=== PATIENT | female | born 1950 | race Caucasian/White ===

== ENCOUNTER 2017-01-01 21:48 | Inpatient (IN) | payer MEDICARE, OTHER ==
[~2017-01-01] VITALS: Ht 170.2 cm; Wt 92.5 kg
--- NOTE | ~2017-01-01 | HP ---
ADMIT: 01/01/2017 RM/LOC: 302 [facility] MR#: [id number] [address] [address] ERIC ZHU [address] [place] [address] History and Physical SEX: F AGE: 66 : 1950 DATE OF SERVICE: 01/01/2017 CHIEF COMPLAINT: Upper GI bleed with melenic stools and hypotension. HISTORY OF PRESENT ILLNESS: This is a 66-year-old, female patient, who just discharged from [facility] today to skilled care here. She was actually in the hospital here at [place] for a couple of weeks with recurrent upper GI bleeds. Dr. Talbert had scoped her above twice and then I scoped her stomach and duodenum once, and Dr. Alexis scoped it the 4th time. Despite that, she received I think 23 or 24 units of packed cells while she was here. She has a known duodenal ulcer. She had at least 1 positive nuclear medicine tagged red blood cell scan, which prompted that fourth EGD. She ultimately was transferred to [place] for Gastroenterology consult. She was feeling fine till this afternoon. She had an abrupt onset of melenic stools at the group home unit, became hypotensive, tachycardic, complaining of a little bit of abdominal discomfort and so she was obviously transferred here for evaluation. PAST MEDICAL HISTORY: She has chronic renal insufficiency, actually renal failure at this point now and is on dialysis. She has this anemia. She has history of hyperkalemia at times, history of lupus, hypertension, and COPD. MEDICATIONS: Well outlined on the chart. SOCIAL HISTORY: She was just discharged to the group home unit today. FAMILY HISTORY: Noncontributory. REVIEW OF SYSTEMS: Ten-point review of systems. Her current issues are her hypotension and shortness of breath. Minimal abdominal discomfort and then the melenic stools that she is having. PHYSICAL EXAMINATION: GENERAL: She is quite pale. She is lying in Trendelenburg in the bed. She is alert. She is oriented. She is able to answer questions. LUNGS: Diminished bilaterally. ADMIT: 01/01/2017 RM/LOC: 302 [facility] MR#: [id number] [address] [address] ERIC ZHU [address] [place] [address] History and Physical SEX: F AGE: 66 : 1950 HEART: Tachy. ABDOMEN: Obese. It is soft. Minimally uncomfortable. EXTREMITIES: Warm and pink with some edema. ASSESSMENT: 1. Melena. 2. Anemia. PLAN: I have recommended proceeding with EGD tonight as well as central venous line. I have gone through risks and benefits of both these procedures with the patient and her daughter. They understand all this and agreed to proceed. Magdy Rivera MD/ jorge a JOB #: [id number] CC: Magdy Rivera, Attending Physician Leona Singletno, Family Physician
--- NOTE | ~2017-01-01 | ECH ---
Transthoracic Echocardiography Report (TTE) Demographics Patient Name ERIC ZHU Date of Study 01/05/2017 Patient Number [id number] Visit Number [id number] Date of 1950 Room Number 302 Accession Number [id number] Gender Female Age 66 year(s) Referring King Aidan Lewis MD Tray Delivery Aide Christy Lopez [facility] Physician Physician Interpreting Masoud CRUZ Wood Room Hand Physician David Supervising Ordering Physician King Aidan Lewis MD, MD/MLP Nurse Stress Pin Ball Machine Mechanic Conclusions Contractility Score Summary Normal Left Ventricular contractility was noted. Summary Limited exam for ejection fraction. Technically difficult exam to perform due to patient in supine position. Images obtained are fair. The estimated left ventricular ejection fraction is 55%. Mild left ventricular hypertrophy. The left atrium is severely dilated by LA volume index measurement. The right atrium is mildly dilated. Recommendation The patient will be given the results of this study by the physician who ordered the exam. Procedure Type of Study TTE procedure:Echo Limited SF. Procedure Date Date: 01/05/2017 Start: 05:07 PM Technical Quality: Fair due to patient immobility. Indications:Atrial fibrillation. Appropriate Use Criteria: 9 Height: 67 inches Weight: 233.01 pounds BSA: 2.16 m Rhythm: Atrial fibrillation HR: 100 bpm BP: 83/46 mmHg M-Mode/2D Measurements LV Diastolic Dimension: 4.8 cm LV Systolic Dimension: 3.38 cm LV Septum Diastolic: 1 cm LV PW Diastolic: 1.05 cm AO Root Dimension: 2.49 cm LA Dimension: 4.43 cm LA volume: 122.92 ml LA volume index: 57 ml/m Doppler Measurements Estimated RAP:10 mmHg RA Area: 19.74 cm Findings Left Ventricle The left ventricle is normal in size . Mild left ventricular hypertrophy. Right Ventricle Right ventricle not well seen. Left Atrium The left atrium is severely dilated by LA volume index measurement. Right Atrium The right atrium is mildly dilated. Pericardial Effusion No evidence of pericardial effusion. Miscellaneous Visualized portions of the aortic root and ascending aorta appear normal in size. Pleural Effusion No evidence of pleural effusion. Contractility Score LV regional wall motion:(0-Non visualized 1-Normal 2-Hypokinesis 3-Akinesis 4-Dyskinesis 5-Aneurysm) Signature
[~2017-01-01 21:48] MED LIST: ACCUNEB DP0.63 MG/3 IH; ADVAIR DIS1 PUFF/DO1 IH; ADVAIR DIS1 PUFF/DO2 IH; ASA CHILDREN'S81 MG PO; ASPIRIN EC81 MG PO; ATROVENT SOLN.2.5 ML IH; B COMPLETE1 EACH PO; BUMETANIDE2 MG PO; CALTRATE-600 D600 MG PO; CULTURELLE1 CAP PO; DELTASONE DPS10 MG PO; DELTASONE DPS20 MG PO; HYDROXYCHLOROQ200 MG PO; LEVAQUIN DPS250 MG PO; MUCINEX600 MG PO; NILSTAT SUSP DPS5 ML PO; NORCO 5-325 TA1 EACH PO; NORVASC5 MG PO; PLAQUENIL DPS200 MG PO; PROBIOTIC1 EAC1 PO; ROCALTROL DP0.25 MCG PO; ROCALTROL DPS0.5 MCG PO; TENORMIN-DPS25 MG PO; VITAMIN B-121000 MCG PO; VITAMIN D-32000 UNI1 PO
--- NOTE | 2017-01-03 06:25 | ER ---
ADMIT: 01/01/2017 RM/LOC: 302 [facility] MR#: [id number] [address] [address] ERIC ZHU [address] [place] [address] Emergency Room Report SEX: F AGE: 66 : 1950 DATE: 01/01/2017 CHIEF COMPLAINT: GI bleed. HISTORY OF PRESENT ILLNESS: The patient is a 66-year-old female, who comes from [facility] care, who has a history of GI bleed. Apparently just prior to arrival, she has had 4 large melanotic maroon stools while at [facility]. The patient states that she has some diffuse abdominal pain with this. She otherwise denies any chest pain, shortness of breath, nausea, or vomiting. She does have a history of GI bleed in the past and has been scoped before and has received numerous packed red blood cells for acute blood loss in the past, associated with her GI bleeds. PAST MEDICAL HISTORY: Chronic kidney disease; lupus; COPD; end-stage renal disease, on dialysis; depression; previous GI bleed. MEDICATIONS: See nurse's note. SURGICAL HISTORY: She has had previous EGDs and colonoscopies in the past, tonsillectomy, and tubal ligation. ALLERGIES: SEE NURSE'S NOTE. SOCIAL HISTORY: History of smoking but quit many years ago. Denies drug or alcohol use. PHYSICAL EXAMINATION: VITAL SIGNS: Initial blood pressure was 106/67, heart rate of 77, respirations 20, temp 98.6, sats 100% on 2 L, which normally wears. GENERAL: The patient is alert, oriented, is pale. HEENT: Head is atraumatic. Airway is patent. LUNGS: Clear to auscultation. HEART: Borderline tachycardic. ABDOMEN: Obese and soft. There is some diffuse tenderness. SKIN: Warm and dry but she does have some pallor. EMERGENCY DEPARTMENT COURSE: The patient arrived. We went ahead and started our sepsis protocol. Type and screened the patient and tried to get IV lines. We had difficulty obtaining good IV access and I contacted Dr. Rivera, who is ADMIT: 01/01/2017 RM/LOC: 302 [facility] MR#: [id number] [address] [address] ERIC ZHU [address] [place] [address] Emergency Room Report SEX: F AGE: 66 : 1950 on for General Surgery this evening. They actually came in and saw the patient and plan at this time is to have the patient go to the OR to get a scope to see if we can find the source of bleeding and possible placement of a central line at that time. The patient is admitted to Dr. Rivera's service to go to the OR directly from the ER. DIAGNOSES: 1. Gastrointestinal bleed. 2. Acute blood loss anemia. 3. Melena. DISPOSITION: The patient is admitted in critical condition. Gino Etienne MD/ jorge a JOB #: [id number] CC: Magdy Rivera MD, Attending Physician Leona Singleton MD, Family Physician
--- NOTE | 2017-01-04 08:33 | CO ---
ADMIT: 01/01/2017 RM/LOC: 302 [facility] MR#: [id number] [address] [address] ERIC ZHU [address] [place] [address] Consultation SEX: F AGE: 66 : 1950 DATE OF CONSULTATION: 01/02/2017 ATTENDING PHYSICIAN: Magdy Rivera CONSULTING PHYSICIAN: Staci Pena MD REASON FOR CONSULTATION: Chronic kidney disease on dialysis. HISTORY OF PRESENT ILLNESS: The patient is a 66-year-old female, who is well known to me. She has had a recent prolong hospitalization here with a gastrointestinal bleed. She had multiple endoscopic procedures and was eventually transferred to [place] for Gastroenterology consult. She did have an acute kidney injury on her underlying chronic kidney disease and eventually needed renal replacement therapy. She was being dialyzed down in [place]. Her last treatment was on Thursday. She was transferred here to assisted facility yesterday. Yesterday, she was noted to have 4 melanotic blood stools, and was hypotensive, and was transferred here to the ICU. She did end up having an upper GI endoscopy last night and there was no active bleeding that was noticed. She was extubated but had to be intubated postprocedure. At this time, she is on a ventilator. She is unable to give me a history, but she is awake, will have to answer some questions. She denies any pain. She is comfortable. She appears pale. REVIEW OF SYSTEMS: Limited by patient's condition and is unobtainable at this time. PAST MEDICAL HISTORY: 1. Hypertension. 2. Anemia and chronic kidney disease. 3. CKD stage 5 on dialysis. She had a diagnostic kidney biopsy previously which did not have very many glomeruli and showed idvvrpnu-no-oyijin interstitial fibrosis and tubular atrophy. 4. Renal osteodystrophy. 5. Tobacco use. 6. COPD. 7. Proteinuria. 8. Microscopic hematuria. 9. Vitamin D deficiency. MEDICATIONS: Reviewed and addressed in the chart. SOCIAL HISTORY: She used to live at home. She is currently at the assisted facility here. No ongoing tobacco, alcohol, or recreational drug use. FAMILY HISTORY: No family history of chronic kidney disease or renal replacement therapy. ALLERGIES: CELEBREX AND MONICA INHIBITORS. ADMIT: 01/01/2017 RM/LOC: 302 [facility] MR#: [id number] [address] [address] ERIC ZHU [address] [place] [address] Consultation SEX: F AGE: 66 : 1950 PHYSICAL EXAMINATION: VITAL SIGNS: Temperature 97.3 Fahrenheit, pulse 57, blood pressure 90/65, saturating 100% on 35% FiO2. GENERAL: She is intubated. She appears pale. HEENT: Head is nontraumatic and normocephalic. Extraocular movements are intact. Pale conjunctivae. CVS: Regular rhythm. S1 and S2. No murmurs, rubs, or gallops. ABDOMEN: Soft and nontender. CHEST: Decreased breath sounds bilaterally. SKIN: No rash or nodules. NEUROLOGIC: She is awake and responds to verbal stimulus. MUSCULOSKELETAL: Extremities within normal limits. SKIN: No rash or nodules. EXTREMITIES: She has 2+ lower extremity edema. LABORATORY DATA: Reviewed. BMP with sodium 142, potassium 3.2, creatinine is 3.3, CO2 is 25. Hemoglobin 6.6, white count is 8.5. Calcium is 6.5. ASSESSMENT AND PLAN: 1. Chronic kidney disease stage 5, on dialysis. 2. Gastrointestinal bleed, likely duodenal. 3. Hypertension. 4. Volume expansion/edema. 5. Hypokalemia. 6. Acute blood loss anemia. She is hypotensive but volume expansion is a concern at this time. I will stop her IV fluids for the time being since the blood pressures are better now. We can address her potassium as well as acute blood loss anemia on dialysis and transfuse her on dialysis. I will try to provide ultrafiltration as her blood pressure allows to address her volume expansion. Because of her volume expanded state, she may need frequent hemodialysis, I suppose two to three times a week schedule. Thank you for this consultation and allowing me the opportunity to participate in this patient's care. Please do not hesitate to contact me with any questions. Staci Pena MD/ jorge a JOB #: [id number] CC: Magdy Rivera, Attending Physician Leona Singleton, Family Physician
--- NOTE | 2017-01-05 10:07 | CO ---
ADMIT: 01/01/2017 RM/LOC: 302 [facility] MR#: [id number] [address] [address] ERIC ZHU [address] [place] [address] Consultation SEX: F AGE: 66 : 1950 DATE OF CONSULTATION: 01/02/2017 ATTENDING PHYSICIAN: Magdy Rivera CONSULTING PHYSICIAN: Ángel Kat MD HISTORY OF PRESENT ILLNESS: Dr. Rivera called me to see this patient in critical care, this night. I saw her initially at 1 a.m., and subsequently dictating the note. She is on vent on volume control mode. She is sedated with Versed. She has a right Hemo-Cath in the IGS system. She has a left central line for IVs. She had the 4th upper GI endoscopy and has had cauterization of the bleeding duodenal ulcer. She had numerous blood transfusions, I think 24 of them. She is in acute kidney injury. She is getting hemodialysis, had her last dialysis done yesterday, that is 01/01/2017. I got a chance to talk to the daughters, who were present and also nurse. PHYSICAL EXAMINATION: GENERAL: On My evaluation, she looks well nourished. She is sedated. Her blood pressure appears stable on no pressor support. VITAL SIGNS: Blood pressure was 127/69, heart rate was 69, and her saturation 98% on 80% oxygen. CHEST: Sounder clear. There were no heart murmur. GI: Bowel sound present. ABDOMEN: Somewhat protuberant. There was no edema. LABORATORY DATA: The chest x-ray, the recent one is pending. The old one from November showed right subclavian central line and probable right lower lobe atelectasis. Her blood gases on the vent setting; pH 7.53, pCO2 of 39, pO2 of 201.7, bicarb 21.2 on the date of 16. Sodium 140, potassium was 3.3, creatinine 3.2, BUN 39. Hemoglobin was 7.7, it was 6.8 earlier; white count 17.9, platelet 108. IMPRESSION: 1. Post-procedure ventilator status, acute persistent gastrointestinal bleeding, status post repeat endoscopies. 2. Wnobo-bg-qmkjnqw kidney disease, on hemodialysis. 3. Severe anemia secondary to gastrointestinal blood loss. ADMIT: 01/01/2017 RM/LOC: 302 [facility] MR#: [id number] [address] [address] ERIC ZHU [address] [place] [address] Consultation SEX: F AGE: 66 : 1950 RECOMMENDATIONS: I will get her started on a Precedex drip, Fentanyl drip for pain control and sedation. She is already on Protonix continuos infusion. Make vent changes to pressure control mode. Wean as possible in the morning. Labs and chest x-ray will be reviewed. I would like to thank Dr. Rivera for this referral. I think there may be some definitive surgical decision to be made to control the persistent GI bleeding. Ángel Kat MD/ jorge a JOB #: [id number] CC: Magdy Rivera, Attending Physician Leona Singleton, Family Physician MD Leona Kauffman MD
--- NOTE | 2017-01-12 15:29 | CO ---
ADMIT: 01/01/2017 RM/LOC: 302 [facility] MR#: [id number] [address] [address] MARLYS ZHU [address] [place] [address] Consultation SEX: F AGE: 66 : 1950 DATE OF CONSULTATION: 01/06/2017 ATTENDING PHYSICIAN: Magdy Rivera CONSULTING PHYSICIAN: Romi Crenshaw APRN TIME IN: 1040 hours. TIME OUT: 1115 hours. REASON FOR CONSULTATION: Supportive care consultation was requested by Dr. Singleton for discussion of goals for care. HISTORY OF PRESENT ILLNESS: Marlys is a delightful 66-year-old female with a history of recurrent upper GI bleeds over the course of the last month or so. She has had numerous EGD evaluations and extensive number of blood transfusions. She was hospitalized here in November of 2005 with upper GI bleeding and did undergo extensive evaluation, however, eventually transferred to [place] for GI consult. Apparently, she improved while there and [facility], however, shortly after arriving at [facility], she began having dark stools with decreasing blood pressure and elevated heart rate. She was admitted again for evaluation. She did go for EGD where they did not find any active bleeding, but did find an old blood. She did have cauterization of the ulcer bed noted on EGD. After procedure, she ended up needing to be intubated, however, she has now been extubated. She continues to be anemic. Last hemoglobin was 7.9. She is scheduled to receive blood today. Additionally, she is also on hemodialysis for chronic kidney disease. Overall, she is very debilitated. This morning, she did have a conversation with Dr. Singleton and directed that she wishes to be a do not resuscitate/do not intubate status and she wishes to no longer receive any further EGD evaluation. Due to her complexities, supportive care consultation was requested to discuss goals. In terms of advanced directives, the patient does not have a living will or any other advanced directives that she has completed. Her legal next of kin decision maker is her daughter, Kp Zhu whose phone #[phone]. Kp is not the patient's healthcare [id number], however, she is her eldest child. As mentioned, the patient is a do not resuscitate/do not intubate status. Symptomatically, the patient is very weak and debilitated. She does have intermittent anxiety, which is exacerbated by dialysis. She denies pain currently. PAST MEDICAL HISTORY: Chronic kidney disease, for which she is on dialysis, recurrent GI bleeding, anemia, hyperkalemia at times, history of lupus, hypertension, and COPD. ALLERGIES: THE PATIENT IS ALLERGIC TO MONICA INHIBITORS AND CELEBREX. ADMIT: 01/01/2017 RM/LOC: 302 [facility] MR#: [id number] [address] [place] [address] [place] [address] Consultation SEX: F AGE: 66 : 1950 CURRENT MEDICATIONS: Please see the patient's MAR for specific routes and dosages. Her current medications are as follows: 1. Cardizem. 2. Lopressor. 3. Protonix. 4. Ativan. 5. Fentanyl. 6. Mycostatin. 7. Cordarone. 8. Tylenol. 9. Dulera. 10.Precedex. 11.Nitrostat. SOCIAL HISTORY: The patient is not . She has adult children. She does not use alcohol, tobacco, or illicit drugs. FAMILY HISTORY: Reviewed per chart and noncontributory. FUNCTIONAL REVIEW: Prior to her hospital stay, she was living at skilled care. She was needing assistance with ADLs. Her palliative performance score prior to admission was around 50%. Currently, she is in bed. She is total care for the most part. Her intake is reduced. She is fatigued. Her current palliative performance scale is 30%. REVIEW OF SYSTEMS: A 10-point review of systems was completed and other than those pertinent positives and negatives mentioned the HPI, it is negative. PHYSICAL EXAMINATION: GENERAL: The patient is examined in the bed. She is in no acute distress. VITAL SIGNS: Temperature 97.8, pulse 85, respirations 18, blood pressure 112/75, oxygen 95% on 4 L per nasal cannula. HEENT: Head is normocephalic. Pupils are equal, round, and reactive with a diameter of 3 mm bilaterally. Oral mucosa pink and moist. Fair dentition. NECK: Supple. RESPIRATORY: Respirations are equal and nonlabored at rest. LUNGS: Diminished throughout. CARDIOVASCULAR: Irregularly irregular without murmurs, rubs, or gallops. 1+ generalized edema. GASTROINTESTINAL: Soft, nontender. She is obese. Bowel sounds are positive. GENITOURINARY: She has a Crook draining yellow urine. MUSCULOSKELETAL: Generalized weakness. INTEGUMENTARY: Skin turgor is fair. NEUROLOGIC: Alert and oriented x3. She will follow commands. PSYCHIATRIC: Calm during our discussion, but she will become intermittently anxious. No delirium noted. DIAGNOSTIC DATA: Sodium 138, potassium 4.1, BUN 18, and creatinine 2.2. ADMIT: 01/01/2017 RM/LOC: 302 [facility] MR#: [id number] [address] [place] [phone] MARLYS ZHU [address] [place] [address] Consultation SEX: F AGE: 66 : 1950 Total protein 4.9, albumin 2.8. WBC is 15.8, hemoglobin 6.5, hematocrit 22.3, and platelets are 108. IMPRESSION: 1. Debility. 2. Fatigue. 3. Malaise. 4. Moderate protein-calorie malnutrition. 5. Anxiety. 6. Gastrointestinal bleed. 7. Chronic kidney disease, stage 5 on hemodialysis. 8. Anemia. 9. Atrial fibrillation. 10.Palliative care. 11.The patient is a do not resuscitate/do not intubate. PLAN: 1. I was able to meet with the patient the bedside. She is alert and oriented, able to participate in medical decision making. I introduced myself and what my role is and she states to me that she is "done." I explored this further with her and she states that she does not want any more EGD evaluations, however, for the time being, she is okay with ongoing hemodialysis as well as blood transfusions and TPN. She does agree to ongoing discussions in the days ahead regarding this. When I have asked if she has talked her children about that, she states that she has talked with her daughter and also her daughter is sad that she is wanting to be less aggressive with her care that she is supportive in her mother's decision. The patient agrees to ongoing discussions in the days ahead pending her status. 2. In terms of code status, I did review this with the patient and she is very clear that she wishes to be a do not resuscitate/do not intubate status. This is reflected on the chart. 3. In terms of advanced directives, the patient's daughter is her next of kin medical decision maker. I did offer her assistance with completion of health care [id number] paperwork, however, the patient is fatigued at this point, and legally decision making would follow with her daughter wishes if she wants as her decision maker. Pending our discussions in the days ahead and outcomes of those, I may assist the patient with completing a POLST form as she does not have any advanced directives on file. 4. In terms of her anxiety, I do agree with the Ativan. However, the nurses ADMIT: 01/01/2017 RM/LOC: 302 [facility] MR#: [id number] [address] [place] [address] [place] [phone] MARLYS ZHU [address] [place] [address] Consultation SEX: F AGE: 66 : 1950 that are taking care of the patient does state that she gets a little agitated and confused with the Ativan. If she does not tolerate it, you could try Xanax 0.5 mg p.o. q.6 hours p.r.n. This may also help a little bit better with a panic type feelings that the nurse reports when the patient is getting dialysis. We will see how she does today. 5. We will continue to follow along in the care of this patient and assist with goals pending the patient's status. We would like to thank Dr. Singleton for the invitation to participate in this patient's care. Total consultation time was 35 minutes from 1045 hours to 1120 hours with 28 minutes from 1042 hours to 1110 hours, spent [id number] with the patient discussing goals for care and providing counseling and support. We will continue to follow along. Romi Crenshaw APRN/ jorge a JOB #: [id number] CC: Magdy Rivera, Attending Physician Leona Singleton, Family Physician
--- NOTE | 2017-01-12 19:27 | OR ---
ADMIT: 01/01/2017 RM/LOC: 302 [facility] MR#: [id number] [address] [address] ERIC ZHU [address] [place] [address] Operative/Delivery Room Report SEX: F AGE: 66 : 1950 SURGERY DATE: 01/02/2017 SURGEON: Magdy Rivera MD PREOPERATIVE DIAGNOSIS: Upper gastrointestinal bleed. POSTOPERATIVE DIAGNOSIS: Evidence of old blood within the stomach as well as some fresh blood at the a duodenal ulcer appeared to be the site of her recent recurrent upper gastrointestinal bleed. PROCEDURE PERFORMED: EGD with injection of duodenal ulcer as well as cauterization of the ulcer base. Left subclavian central venous line placement. ANESTHESIA: General endotracheal. ESTIMATED BLOOD LOSS: Approximately 10 mL. DESCRIPTION OF PROCEDURE: After appropriate informed consent was obtained, the patient was brought urgently to the endoscopy suite. General endotracheal anesthesia was induced by Anesthesia. A well-lubricated endoscope was introduced and passed down the esophagus. The esophageal mucosa appeared normal. No evidence of ulceration. No stricture or narrowing. No hiatal hernia. The scope was advanced to the stomach. There was a large amount of black bloody contents within the stomach as well some old food within the stomach. There did not appear to be any active bleeding that I could identify from the gastric mucosa. Pylorus was intubated. The duodenal bulb and just past the duodenal bulb and the 2nd portion of the duodenum was a duodenal ulcer. There was an Endo Clip still hanging mostly by a thread of mucosa, it really was not doing anything to control the ulcer, but there was some fresh blood in the ulcer base. I washed this away. I could see what looked like a little bit of a visible vessel there. I ended up injecting this ulcer with epinephrine mixture, injected circumferentially and then several injections through the center of this ulceration. In addition to that then I used the hot biopsy forceps. I first knocked the clip away to make sure there was not any ulceration underneath that and then I cauterized the ulcer bed pretty extensively with the hot biopsy forceps. With the ulcer bed cauterized and injected, I also drove the scope past this area down as far as I could in the duodenum and everything looked fine distally. The scope was then pulled back into the stomach, retroflexed again revealing large amount of black blood within the stomach, but no active bleed, just a small hiatal hernia from below. The stomach was then deflated and scope withdrawn. ADMIT: 01/01/2017 RM/LOC: 302 [facility] MR#: [id number] [address] [address] [address] [place] [address] Operative/Delivery Room Report SEX: F AGE: 66 : 1950 I then proceeded with placement of central venous line. A left subclavian area was prepped and draped in a sterile fashion. An 18-gauge Cook needle on a syringe was used to access this left subclavian vein on the first pass. I had good return of dark red, nonpulsatile blood. Guidewire passed easily, and via Seldinger technique, I placed a 7-Ukrainian 3-lumen catheter to 20 cm at the skin edge. This was sewn in place. All 3 ports were aspirated and flushed easily. Sterile dressing was then applied. The patient tolerated the procedure well and was taken up to the ICU, still intubated. Magdy Rivera MD/ jorge a JOB #: [id number] CC: Magdy Rivera, Attending Physician Leona Singleton, Family Physician MD Nacho Beckman MD
--- NOTE | 2017-01-20 15:15 | CO ---
ADMIT: 01/01/2017 RM/LOC: 302 [facility] MR#: [id number] [address] [address] ERIC [address]HU [address] [place] [address] Consultation SEX: F AGE: 66 : 1950 DATE OF CONSULTATION: 01/12/2017 ATTENDING PHYSICIAN: Magdy Rivera CONSULTING PHYSICIAN: Janae Tate MD REASON FOR CONSULT: Methicillin-resistant Staphylococcus epidermidis bacteremia. Thank you, Dr. Singleton, for the consult and involving me in this patient's care. HISTORY OF PRESENT ILLNESS: Ms. Zhu is a 66-year-old woman, who has had a prolonged hospital course for upper gastrointestinal bleed. She has multiple endoscopies and was last transferred to [place] for gastroenterology consult. She has underlying chronic kidney disease and eventually ended up on renal replacement therapy and now has a right tunnel dialysis catheter. She was in custodial facility last week and had 4 melenic stools and was hypotensive and transferred to ICU. She was intubated for a while, postprocedure. She also has a left subclavian central venous catheter. She is now stable from gastrointestinal standpoint and she had a fever of 100.1 on January 10, 2017. Blood cultures were drawn and one of the set is growing Staphylococcus epidermidis, pending culture and sensitivity. She was started on ceftaroline and she has been afebrile since then. She was also noted to have herpes zoster rash on right breast. At present, she complains of shortness of breath and is getting dialysis right now. PAST MEDICAL HISTORY: 1. Recurrent GI bleed. 2. Hypertension. 3. Anemia. 4. Chronic kidney disease, now on hemodialysis. 5. Renal osteodystrophy. 6. COPD. 7. Tobacco use. 8. Microscopic hematuria. 9. Vitamin D deficiency. 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 PAST SURGICAL HISTORY: Lumbar fusion in 2007 and left knee total knee arthroplasty. ALLERGIES: NO KNOWN DRUG ALLERGIES. CURRENT MEDICATIONS: 1. Cardizem. 2. Lanoxin. 3. Lopressor. 4. Paxil. ADMIT: 01/01/2017 RM/LOC: 302 [facility] MR#: [id number] [address] [address] ERIC ZHU [address] [place] [address] Consultation SEX: F AGE: 66 : 1950 5. Protonix. 6. DuoNeb. 7. Mycostatin. 8. Diltiazem. 9. TPN. 10.Teflaro 400 mg q.12 hours. SOCIAL HISTORY: She lives at home with her daughter. She used to smoke half to one pack per day and quit smoking two months back. Denies any alcohol or recreational drug use. FAMILY HISTORY: Significant for colon cancer in her sister. REVIEW OF SYSTEMS: A 10-point review of systems negative except as mentioned in HPI. PHYSICAL EXAMINATION: VITAL SIGNS: Current temperature 98.1, T-max 100.1, heart rate 82, and blood pressure 104/53, respirations 17, saturation 97% on 5 L. GENERAL: In no acute distress. Anasarca. HEENT. Head, normocephalic and atraumatic. Extraocular movements intact. CHEST: Decreased breath sounds bilaterally. CARDIOVASCULAR: S1, S2 heard. Irregular rate and rhythm. ABDOMEN: Soft, nontender, and nondistended. SKIN: Vesicles noted on the right breast with surrounding erythema and tenderness to palpation. PSYCH: Normal affect. Memory intact. DATA REVIEW: 1. Blood cultures from 01/10/2017 is growing staph epidermidis. 2. CBC today shows white count of 7.9, hemoglobin 9.1, and platelets of 190. BMP shows creatinine of 2.7. She had right arm venous Doppler which showed nonocclusive thrombus in the right brachial vein. Chest x-ray shows cardiomegaly with interstitial basilar markings bilaterally and bilateral pleural effusion. ASSESSMENT AND PLAN: 1. Staphylococcus epidermidis bacteremia likely secondary to central venous catheter infection as she spiked fever, it is less likely a contaminant. I will repeat the blood cultures x2. She has erythema at the subclavian central venous catheter insertion site, hence, recommend removing the line and culturing the tip. I will stop the ceftaroline and ADMIT: 01/01/2017 RM/LOC: 302 [facility] MR#: [id number] [address] [address] [address] [place] [address] Consultation SEX: F AGE: 66 : 1950 start her on IV vancomycin at this time. 2. Right breast herpes zoster infection. I will start her on IV acyclovir 5 mg/kg once daily to be dosed after hemodialysis. 3. Upper GI bleed. Currently hemoglobin stable. 4. End-stage renal disease, on hemodialysis. If she continues to have positive blood cultures, then may have to remove the right tunneled dialysis catheter as well. 5. Lupus nephritis. 6. Atrial fibrillation. 7. Right arm deep venous thrombosis. Thank you for the consult and I will continue to follow the patient. Janae Tate MD/ jorge a JOB #: [id number] CC: Magdy Rivera, Attending Physician Leona Singleton, Family Physician
[2017-01-23] MEDS ORDERED: LOPRESSOR DPS50 MG PO (12:27)
[2017-01-23] MEDS ORDERED: PROTONIX40 MG PO (12:27)
[2017-01-23] MEDS ORDERED: CARDIZEM60 MG PO (12:27)
[2017-01-23] MEDS ORDERED: PAXIL10 MG PO (12:27)
[2017-01-23] MEDS ORDERED: DUONEB DPS3 ML IH (12:28)
[2017-01-23] MEDS ORDERED: BACTROBAN OINT.22 GM TP (12:28)
[2017-01-23] MEDS ORDERED: MYCOSTATIN PWD15 GM TP (12:29)
[2017-01-23] MEDS ORDERED: MAALOX DPS30 ML PO (12:30)
[2017-01-23] MEDS ORDERED: TYLENOL DPS325 MG PO (12:30)
[2017-01-23] MEDS ORDERED: SURFAK DPS240 MG PO (12:30)
[2017-01-23] MEDS ORDERED: SEROQUEL25 MG PO (12:30)
[2017-01-23] MEDS ORDERED: DULERA 200/58.8 GM IH (12:31)
[2017-01-23] MEDS ORDERED: XANAX DPS0.25 MG PO (12:31)
[2017-01-23] MEDS ORDERED: VITAMIN B-121000 MCG PO (12:32)
[2017-01-23] MEDS ORDERED: MIRALAX PACKET17 GM PO (12:32)
[2017-01-23] MEDS ORDERED: CALMOSEPTINE113 GM TP (12:32)
[2017-01-23] MEDS ORDERED: DULCOLAX-DPS10 MG PR (12:33)
--- NOTE | 2017-01-23 12:51 | CO ---
ADMIT: 01/01/2017 RM/LOC: 302 [facility] MR#: [id number] [address] [address] MARL[facility] [address] [address] [place] [address] Consultation SEX: F AGE: 66 : 1950 DATE OF CONSULTATION: 01/05/2017 ATTENDING PHYSICIAN: Magdy Rivera CONSULTING PHYSICIAN: Aidan Mcallister MD REASON FOR CONSULTATION: Shortness of breath and hypotension. HISTORY OF PRESENT ILLNESS: Marlys is a pleasant 66-year-old female who was admitted to the hospital on January 01 for upper GI bleed with melenic stools and hypotension. She had previous of episodes of upper GI bleeds. The patient lives with her daughter, she fell at home and she was admitted for bleeding. She complained of minimial abdominal discomfort, she became hypotensive and tachycardic. PAST MEDICAL HISTORY: chronic renal insufficiency. She is currently anemic. She has a history of hypertension and COPD. MEDICATIONS: Reviewed and addressed in the chart. SOCIAL HISTORY: She used to live at home, but she is currently at a custodial facility. She used to smoke about 5 cigarettes per day, but she quit smoking about 2 months ago. She denies drinking alcohol or any illegal drug use. FAMILY HISTORY: Noncontributory. ALLERGIES: CELEBREX AND MONICA INHIBITOR. REVIEW OF SYSTEMS: GENERAL: The patient is awake and alert, but she appears fatigued and short of breath. She denies any recent fevers, chills, or sweats or any weight changes. ENT: Denies hearing loss or problems with nose, mouth or throat. RESPIRATORY: The patient appears to be short of breath. She denies coughing, sputum production, asthma. She has a history of COPD. GASTROINTESTINAL: The patient reports blood in her stools. No history of ulcers, hiatal hernia, gallbladder or liver disease. GENITOURINARY: The patient reports chronic kidney disease on dialysis. MUSCULOSKELETAL: Denies history of arthritis or gout. Denies muscle or joint pains. ENDOCRINE: Denies history of thyroid dysfunction or diabetes. HEMATOLOGIC: The patient reports a history of anemia. No cancer. NEUROLOGIC: Denies chronic headaches, dizziness, syncope, stroke, seizures or numbness or tingling. PSYCHIATRIC: Denies history of mental illness or feelings of depression. PHYSICAL EXAMINATION: VITAL SIGNS: Blood pressure 138/82, heart rate 104, respirations 16, temperature 98.9, and oxygen 96%. EYES: Sclerae clear. No xanthelasmas. ADMIT: 01/01/2017 RM/LOC: 302 [facility] MR#: [id number] [facility] [address] [address] MARL[facility] [address] [place] [address] Consultation SEX: F AGE: 66 : 1950 ENT: Oral mucosa is pink and moist. No jugular venous distention or carotid bruits. HEART: Irregular with tachycardia. LUNGS: Diminished breath sounds. ABDOMEN: Soft and nontender. MUSCULOSKELETAL: Gait is normal. EXTREMITIES: Peripheral pulses palpable. No clubbing, cyanosis or edema. PSYCHIATRIC: Alert and oriented. Mood and affect are appropriate. DIAGNOSTIC DATA: White blood cell 21.9, hemoglobin 7.5, hematocrit 24.9, and platelets 248. Troponin 0.137. BNP 976. CK 76, MB 2.7. ASSESSMENT AND PLAN: 1. Atrial fibrillation. 2. Acute kidney injury/dialysis. 3. Gastrointestinal bleed. 4. Anemia. 5. Hypertension. 6. History of smoking. We will continue controlling her heart rate with amiodarone for right now. We will withhold anticoagulation due to her GI bleeding. Recheck limited echo to make sure that the ejection fraction is okay in the morning. We will consider cardioverting in the future, if she does not convert back. We will also see how she is doing on dialysis. We will check MB, troponin, and EKG in the morning. We will add metoprolol 5 mg every 2-3 hours p.r.n. if heart rate is above 100 and if systolic blood pressure is over 100. Thank you for the consult. LOIDA Brunner Student / Aidan Mcallister MD / jorge a JOB #: [id number] CC: Magdy Rivera, Attending Physician Leona Singleton, Family Physician
--- NOTE | 2017-02-10 19:05 | DS ---
ADMIT: 01/01/2017 RM/LOC: 417 [facility] MR#: [id number] [address] [address] [facility] [address] [place] [address] General Discharge Summary SEX: F AGE: 66 : 1950 ADMISSION DATE: 01/01/2017 DISCHARGE DATE: 01/21/2017 FINAL DIAGNOSES: 1. Upper gastrointestinal bleeding. 2. Chronic kidney disease stage IV. 3. Hypertension. 4. Chronic obstructive pulmonary disease. HOSPITAL COURSE: Marlys had been admitted for a prolonged stay for upper gastrointestinal bleeding in November of 2016 and then transferred to [facility] but did not have any active bleeding while she was inpatient there. They transferred her back to our senior care unit, but within 12 hours, she started to have black melenic stools and was readmitted to the hospital. On admission, Dr. Rivera did her history and physical. He took her to surgery for EGD urgently and did not see active bleeding. She was sedated after surgery and on the ventilator and Dr. Rivera consulted Critical Care for management. Over the course of the next 2 weeks, the patient was extubated, had consultations with Nephrology, Dr. Pena, who managed her dialysis. Cardiology was also consulted for hypotension and management of atrial fibrillation. She was started on amiodarone. Any anticoagulation was withheld because of her GI bleed. Beta-blockers were gradually titrated to control rate and rhythm. Dr. Tate was consulted during this stay as well because the patient developed methicillin-resistant Staphylococcus epidermidis bacteremia. Her left subclavian central catheter was removed and cultured. She also developed varicella-zoster rash on the right side of the chest and was treated with IV antiviral medication. Marlys and her family visited with supportive care as well. Her goals were for recovery to the point where she could get back home, but she does not want recurrent resuscitation and does not want to be intubated again. She said she does not want tube feedings. Again, the patient had a prolonged stay. She was treated mainly by the Critical Care physicians for the first week of her stay. Because of her recurrent melena with no obvious site of bleeding, the concern was that a surgical intervention would not lead to a definitive care. The patient was ADMIT: 01/01/2017 RM/LOC: 417 [facility] MR#: [id number] [address] [address] [address] [address] [place] [address] General Discharge Summary SEX: F AGE: 66 : 1950 treated with doses of albumin and also Procrit. TPN was started on January 03. By January 19, she had been improving steadily. She had not required transfusion for several days. She was on dialysis 3 days a week. She had completed vancomycin for her Staph MRSE and completed acyclovir for her zoster. We are looking into placement. On 01/21/2017, she was transferred to [place] to [facility]. Dr. Pena addressed Lasix dosing and she will continue dialysis at the rehab facility. The patient transferred via ambulance to [facility]. Leona Singleton MD/ jorge a JOB #: [id number] CC: Leona Singleton MD, Attending Physician Leona Singleton MD, Family Physician
[2017-02-22] MEDS ORDERED: CARDIZEM CD DP120 MG PO (15:13)
[2017-02-22] MEDS ORDERED: LASIX DPS40 MG PO (15:13)
[2017-02-22] MEDS ORDERED: METOPROLOL TART25 MG PO (15:13)
[2017-02-22] MEDS ORDERED: PAXIL DPS20 MG PO (15:13)
[2017-02-22] MEDS ORDERED: PROTONIX40 MG PO (15:14)
[2017-02-22] MEDS ORDERED: VITAMIN B-121000 MCG PO (15:14)
[2017-02-22] MEDS ORDERED: PLAQUENIL DPS200 MG PO (15:14)
[2017-02-22] MEDS ORDERED: DULERA 200/58.8 GM IH (15:14)
[2017-02-22] MEDS ORDERED: RENAGEL800 MG PO (15:14)
[2017-02-22] MEDS ORDERED: SENOKOT S1 TAB PO (15:15)
[2017-02-22] MEDS ORDERED: SEROQUEL25 MG PO (15:15)
[2017-02-22] MEDS ORDERED: TYLENOL DPS325 MG PO (15:15)
[2017-02-22] MEDS ORDERED: TINACTIN108 GM TP (15:15)
[2017-02-22] MEDS ORDERED: MIRALAX PACKET17 GM PO (15:15)
[2017-02-22] MEDS ORDERED: XANAX DPS0.25 MG PO (15:16)
[2017-02-22] MEDS ORDERED: DUONEB DPS3 ML IH ×2 (15:16)
== END 2017-01-21 12:40 | DRG 377 ==
LOC: ER 21:48 → 4PCU 23:30 → 3ICU 23:30 → 4PCU 01-14 13:51
PROVIDERS: ADMIT Family Medicine
PROC: 5A1945Z Respiratory Ventilation, 24-96 Consecutive Hours (ICD-10-PCS; principal; 2017-01-02)
PROC: 30233N1 Transfusion of Nonautologous Red Blood Cells into Peripheral Vein, Percutaneous Approach (ICD-10-PCS; principal; 2017-01-02)
PROC: 02HV33Z Insertion of Infusion Device into Superior Vena Cava, Percutaneous Approach (ICD-10-PCS; principal; 2017-01-02)
PROC: 5A1D60Z (ICD-10-PCS; principal; 2017-01-02)
PROC: 0BH17EZ Insertion of Endotracheal Airway into Trachea, Via Natural or Artificial Opening (ICD-10-PCS; principal; 2017-01-02)
PROC: 0W3P8ZZ Control Bleeding in Gastrointestinal Tract, Via Natural or Artificial Opening Endoscopic (ICD-10-PCS; principal; 2017-01-02)
PROC: B41B1ZZ Fluoroscopy of Other Intra-Abdominal Arteries using Low Osmolar Contrast (ICD-10-PCS; principal; 2017-01-02)
PROC: 3E0436Z Introduction of Nutritional Substance into Central Vein, Percutaneous Approach (ICD-10-PCS; 2017-01-03)
PROC: 0JH63XZ Insertion of Tunneled Vascular Access Device into Chest Subcutaneous Tissue and Fascia, Percutaneous Approach (ICD-10-PCS; 2017-01-15)
PROC: 0JPT0XZ Removal of Tunneled Vascular Access Device from Trunk Subcutaneous Tissue and Fascia, Open Approach (ICD-10-PCS; 2017-01-15)
PROC: 02HV33Z Insertion of Infusion Device into Superior Vena Cava, Percutaneous Approach (ICD-10-PCS; 2017-01-15)
PROC: B5131ZA Fluoroscopy of Right Jugular Veins using Low Osmolar Contrast, Guidance (ICD-10-PCS; 2017-01-15)
PROC: 02PY33Z Removal of Infusion Device from Great Vessel, Percutaneous Approach (ICD-10-PCS; 2017-01-15)
DX: K26.4 Chronic or unspecified duodenal ulcer with hemorrhage (principal); N18.6 End stage renal disease; E44.0 Moderate protein-calorie malnutrition; I95.9 Hypotension, unspecified; I12.0 Hypertensive chronic kidney disease with stage 5 chronic kidney disease or end stage renal disease; I82.621 Acute embolism and thrombosis of deep veins of right upper extremity; I48.1 Persistent atrial fibrillation; M32.9 Systemic lupus erythematosus, unspecified; D62 Acute posthemorrhagic anemia; T80.211A Bloodstream infection due to central venous catheter, initial encounter; B95.7 Other staphylococcus as the cause of diseases classified elsewhere; B02.9 Zoster without complications; R09.02 Hypoxemia; F41.9 Anxiety disorder, unspecified; F32.9 Major depressive disorder, single episode, unspecified; E66.9 Obesity, unspecified; J44.9 Chronic obstructive pulmonary disease, unspecified; Z68.37 Body mass index [BMI] 37.0-37.9, adult; E87.6 Hypokalemia; N25.0 Renal osteodystrophy; E55.9 Vitamin D deficiency, unspecified; Z99.2 Dependence on renal dialysis; D63.1 Anemia in chronic kidney disease; Z87.891 Personal history of nicotine dependence; Z66 Do not resuscitate

== ENCOUNTER 2017-02-11 07:57 | Inpatient (IN) | payer MEDICARE, MEDICAID, SELFPAY ==
[~2017-02-11] VITALS: Ht 170.2 cm; Wt 82.9 kg
[~2017-02-11 07:57] MED LIST changes: +BACTROBAN OINT.22 GM TP; +CALMOSEPTINE113 GM TP; +CARDIZEM60 MG PO; +DULCOLAX-DPS10 MG PR; +DULERA 200/58.8 GM IH; +DUONEB DPS3 ML IH; +LOPRESSOR DPS50 MG PO; +MAALOX DPS30 ML PO; +MIRALAX PACKET17 GM PO; +MYCOSTATIN PWD15 GM TP; +PAXIL10 MG PO; +PROTONIX40 MG PO; +SEROQUEL25 MG PO; +SURFAK DPS240 MG PO; +TYLENOL DPS325 MG PO; +XANAX DPS0.25 MG PO
--- NOTE | 2017-02-20 11:07 | NUR ---
PATIENT NOTE ERIC WILL BE D/C TO HER HOME PER HER REQUEST ON 02/21 AT 11AM. ERIC HAS NO CONCERNS WITH HER STAY, BUT SHE STATED, "I HAVE NOT BEEN HOME FOR 3 MONTHS IT IS TIME TO GET THERE." NURSING OR THERAPY VOICE CONCERNS WITH HER LEAVING PRIOR TO HER GOAL DATE OF 02/27. SHE IS INDEPENDENT WITH ALL TASKS OF DAILY LIVING. SHE HAS OXYGEN AT HOME AND A WALKER. HER AND I TALKED ABOUT HHC AND [employer] AND SHE DECLINED BOTH. I DID LET HER KNOW THAT MY BUSINESS CARD WILL BE STAPLED TO HER D/C FOLDER SO SHE CAN CALL ME ONCE HOME AND IS NEEDING SOMETHING. ERIC REMAINS ALERT, ORIENTED AND VERY PLEASANT. HER DTR. ART LIVES WITH HER, BUT ALSO WORKS THROUGHOUT THE DAY. ERIC DID NOT HAVE CONCERNS WITH TRANSPORTATION TO AND FROM DIALYSIS WHEN I ASKED. ERIC DID REMAIN MEDICARE SKILLED WITH THERAPY THE SKILLED SERVICES. I WISHED HER WELL AT HOME AND TOLD HER TO CALL WITH QUESTIONS OR CONCERNS.
[2017-02-22] MEDS ORDERED: LASIX DPS40 MG PO (15:13)
[2017-02-22] MEDS ORDERED: CARDIZEM CD DP120 MG PO (15:13)
[2017-02-22] MEDS ORDERED: METOPROLOL TART25 MG PO (15:13)
[2017-02-22] MEDS ORDERED: PAXIL DPS20 MG PO (15:13)
[2017-02-22] MEDS ORDERED: PLAQUENIL DPS200 MG PO (15:14)
[2017-02-22] MEDS ORDERED: DULERA 200/58.8 GM IH (15:14)
[2017-02-22] MEDS ORDERED: VITAMIN B-121000 MCG PO (15:14)
[2017-02-22] MEDS ORDERED: RENAGEL800 MG PO (15:14)
[2017-02-22] MEDS ORDERED: PROTONIX40 MG PO (15:14)
[2017-02-22] MEDS ORDERED: SENOKOT S1 TAB PO (15:15)
[2017-02-22] MEDS ORDERED: TYLENOL DPS325 MG PO (15:15)
[2017-02-22] MEDS ORDERED: TINACTIN108 GM TP (15:15)
[2017-02-22] MEDS ORDERED: MIRALAX PACKET17 GM PO (15:15)
[2017-02-22] MEDS ORDERED: SEROQUEL25 MG PO (15:15)
[2017-02-22] MEDS ORDERED: XANAX DPS0.25 MG PO (15:16)
[2017-02-22] MEDS ORDERED: DUONEB DPS3 ML IH ×2 (15:16)
== END 2017-02-21 14:55 | disposition home or self-care (01) | DRG 383 ==
LOC: SNU 07:57
PROVIDERS: ADMIT Family Medicine
PROC: F08Z4ZZ Home Management Treatment (ICD-10-PCS; principal; 2017-02-11)
PROC: F07Z9ZZ Gait Training/Functional Ambulation Treatment (ICD-10-PCS; principal; 2017-02-11)
DX: K26.9 Duodenal ulcer, unspecified as acute or chronic, without hemorrhage or perforation (principal); N18.6 End stage renal disease; M32.9 Systemic lupus erythematosus, unspecified; I12.0 Hypertensive chronic kidney disease with stage 5 chronic kidney disease or end stage renal disease; Z99.81 Dependence on supplemental oxygen; I48.1 Persistent atrial fibrillation; Z99.2 Dependence on renal dialysis; D63.1 Anemia in chronic kidney disease; J44.9 Chronic obstructive pulmonary disease, unspecified; F41.9 Anxiety disorder, unspecified; F32.9 Major depressive disorder, single episode, unspecified; N25.0 Renal osteodystrophy; E55.9 Vitamin D deficiency, unspecified; Z87.891 Personal history of nicotine dependence; Z66 Do not resuscitate

== ENCOUNTER 2017-04-06 16:03 | Emergency (ER) | payer MEDICARE, OTHER ==
[~2017-04-06 16:03] MED LIST changes: +CARDIZEM CD DP120 MG PO; +LASIX DPS40 MG PO; +METOPROLOL TART25 MG PO; +PAXIL DPS20 MG PO; +RENAGEL800 MG PO; +SENOKOT S1 TAB PO; +TINACTIN108 GM TP
--- NOTE | 2017-04-24 15:00 | ER ---
ADMIT: 04/06/2017 RM/LOC: ER [facility] MR#: [id number] [address] [address] ERIC [address]HU [address] [place] [address] Emergency Room Report SEX: F AGE: 66 : 1950 DATE: 04/06/2017 ADDENDUM: A 66-year-old white female coming in with shortness of breath during after dialysis. She does have cardiac disease, hypertension, and lupus nephritis. She has left total knee done and lumbar fusion, but also has significant COPD as noted. At this time, we gave her DuoNeb. We worked her up as a sepsis, but that is all negative. Potassium 3.6 and creatinine 2.9. I did cover her with Augmentin 500 daily q.24 hours x10 days and then follow up with Areli as needed. CONDITION ON DISCHARGE: Good. Aaron Cabrales MD/ jorge a JOB #: [id number] CC: Aaron Cabrales MD, Attending Physician
== END 2017-04-06 18:50 | disposition home or self-care (01) ==
LOC: ER 16:03
DX: J44.1 Chronic obstructive pulmonary disease with (acute) exacerbation (principal); N18.6 End stage renal disease; M32.14 Glomerular disease in systemic lupus erythematosus; Z99.2 Dependence on renal dialysis; Z87.891 Personal history of nicotine dependence; Z79.899 Other long term (current) drug therapy